=== PATIENT | female | born 1940 | race Caucasian/White ===

== ENCOUNTER 2018-10-10 13:15 | Emergency (ER) | payer OTHER ==
[2018-10-10] MEDS ORDERED: NA CHLORIDE 0.9% 1,000 ML ONE (14:16)
[2018-10-10 14:30] LABS: Absolute Lymphocytes (CBC) 1.7 K/uL (0.7-4.9); Absolute Monocytes 0.7 K/uL (0.1-1.3); Absolute Neutrophil 6.2 K/uL (1.8-8.0); Basophils % 0.7 % (0-1.3); Eosinophils % 1.2 % (0-4.4); Hematocrit 35.9 % (36.0-45.0); Lymphocytes % 19.1 % (15.3-44.8); MPV 9.3 fL (7.6-11.3); Monocytes % 7.7 % (3.3-12.3); RBC Red Blood Cell Count 3.89 M/uL (3.86-4.86)
[2018-10-10] MEDS ORDERED: PROMETHAZINE 25 MG/ML VIAL ONE (14:30)
[2018-10-10 14:33] LABS: Protime INR 1.22
[2018-10-10 14:54] LABS: ALT/SGPT 24 U/L (12-78); AST/SGOT 19 U/L (15-37); Albumin 3.9 g/dL (3.4-5.0); Alkaline Phosphatase 51 U/L (45-117); BUN Blood Urea Nitrogen 19 mg/dL (7-18); Bicarbonate 28 mmol/L (21-32); Bilirubin Direct 0.1 mg/dL (0-0.2); Bilirubin Total 0.3 mg/dL (0.2-1.0); Glucose Level 110 mg/dL (74-106); Magnesium 2.3 mg/dL (1.8-2.4); NT PRO-BNP 221 pg/mL (<450); Potassium 4.1 mmol/L (3.5-5.1); Protein, Total 7.5 g/dL (6.4-8.2); Sodium Level 137 mmol/L (136-145); Troponin (Emerg Dept Use Only) < 0.02 ng/mL (0.0-0.045)
--- NOTE | 2018-10-10 15:33 | RAD REPORT ---
EXAM DESCRIPTION: CT - Head Brain Wo Cont - 10/10/2018 3:18 pm CLINICAL HISTORY: WEAKNESS Headache, hypertension, drowsiness COMPARISON: HEAD BRAIN W O CONTRAST dated 01/02/2009 TECHNIQUE: All CT scans are performed using dose optimization technique as appropriate and may inclu de automated exposure control or mA/KV adjustment according to patient size. FINDINGS: No intracranial hemorrhage, hydrocephalus or extra-axial fluid collection.No areas of brai n edema or evidence of midline shift. The paranasal sinuses and mastoids are clear. The calvarium is intact. IMPRESSION: No acute intracranial abnormality.
--- NOTE | 2018-10-10 15:39 | RAD REPORT ---
EXAM DESCRIPTION: CT - Chest Abdomen Pelvis W Cont - 10/10/2018 3:18 pm CLINICAL HISTORY: Chest and abdomen pain. CHEST PAIN COMPARISON: No comparisons TECHNIQUE: Approximately 100 mL nonionic IV contrast was administered to the patient. All CT scans are performed using dose optimization technique as appropriate and may include automated exposure control or mA/KV adjustment according to patient size. FINDINGS: The lungs are clear.No pleural or pericardial effusion.No intrathoracic adenopathy. The liver, spleen, pancreas, adrenal glands and kidneys are within normal limits. No bowel obstruction, free air, free fluid or abscess. Moderate stool is retained in the colon. The a ppendix is not identified as a discrete structure, however, no secondary findings of appendicitis are identified. No pathologic lymphadenopathy in the abdomen or pelvis. No worrisome osseous finding. IMPRESSION: No acute finding is demonstrated. Moderate retention of stool in the colon.
--- NOTE | 2018-10-10 15:51 | ER ---
Nurse's Notes [facility] Name: Olga Wilson Age: 78 yrs Sex: Female : 1940 Arrival Date: 10/10/2018 Time: 13:18 Bed 24 Private MD: Diagnosis: Syncope and collapse;Chest pain, unspecified Presentation: 10/10 13:18 Presenting complaint: EMS states: called us for weakness, numbness, chest pain. No ca1 cardiac issues in the past. BP is 180-190 systolic, 70-80 diastolic. Complains of Nausea, no vomiting. Transition of care: patient was not received from another setting of care. Onset of symptoms was October 10, 2018. Risk Assessment: Do you want to hurt yourself or someone else? Patient reports no desire to harm self or others. Initial Sepsis Screen: Does the patient meet any 2 criteria? RR > 20 per min. Does the patient have a suspected source of infection? No. Patient's initial sepsis screen is negative. Care prior to arrival: Medication(s) given: Phenergan, 12.5 mg, IV initiated. 18 GA, in the right antecubital area, Glucose check: 96. 13:18 Method Of Arrival: EMS: [facility] ca1 13:18 Acuity: LAUREL 3 ca1 Historical: - PSHx: 13:22 Double Mastectomy; ca1 - Immunization history:: Flu vaccine is up to date. - Social history:: Smoking status: Patient/guardian denies using tobacco. - Ebola Screening: : No symptoms or risks identified at this time. Screenin:30 Abuse screen: Denies threats or abuse. Denies injuries from another. Nutritional ca1 screening: No deficits noted. Tuberculosis screening: No symptoms or risk factors identified. Fall Risk Fall in past 12 months (25 points). IV access (20 points). Assessment: 13:30 General: Appears in no apparent distress. uncomfortable, Behavior is calm, cooperative, ca1 appropriate for age. Pain: Denies pain. Neuro: Level of Consciousness is awake, alert, obeys commands, Oriented to person, place, time, situation, Moves all extremities. Speech is normal, Facial symmetry appears normal, Reports dizziness. Cardiovascular: Heart tones S1 S2 present Capillary refill < 3 seconds Patient's skin is warm and dry. Rhythm is sinus bradycardia. Respiratory: Airway is patent Respiratory effort is even, unlabored, Respiratory pattern is regular, symmetrical, Breath sounds are clear bilaterally. GI: Abdomen is flat, non-distended, Bowel sounds present X 4 quads. Abd is soft and non tender X 4 quads. Reports nausea, vomiting. : No signs and/or symptoms were reported regarding the genitourinary system. EENT: No signs and/or symptoms were reported regarding the EENT system. Derm: Skin is intact, Skin is pink, warm \T\ dry. Musculoskeletal: Circulation, motion, and sensation intact. 14:15 Reassessment: Pt vomited 1x, informed Beverly Zuniga NP. ca1 14:25 Reassessment: Patient appears in no apparent distress at this time. Patient and/or ca1 family updated on plan of care and expected duration. Pain level reassessed. Patient is alert, oriented x 3, equal unlabored respirations, skin warm/dry/pink. 15:04 Reassessment: Pt to CT scan. ca1 15:24 Reassessment: Pt back from CTscan. ca1 15:30 Reassessment: Patient appears in no apparent distress at this time. Patient and/or ca1 family updated on plan of care and expected duration. Pain level reassessed. Patient is alert, oriented x 3, equal unlabored respirations, skin warm/dry/pink. 16:30 Reassessment: Patient appears in no apparent distress at this time. Patient and/or ca1 family updated on plan of care and expected duration. Pain level reassessed. Patient is alert, oriented x 3, equal unlabored respirations, skin warm/dry/pink. awaiting room assignment. 16:30 Reassessment: Informed of admission, does not want to be hospitalized. Reports having ca1 several allergies to food and chemicals. Informed Beverly. 16:35 Reassessment: Beverly Zuniga NP at bedside. ca1 17:30 Reassessment: Patient appears in no apparent distress at this time. Patient and/or ca1 family updated on plan of care and expected duration. Pain level reassessed. Patient is alert, oriented x 3, equal unlabored respirations, skin warm/dry/pink. For repeat TROP at 1800. 18:02 Reassessment: Dr. Metcalf at bedside. ca1 19:05 Reassessment: Patient appears in no apparent distress at this time. Patient is alert, ca1 oriented x 3, equal unlabored respirations, skin warm/dry/pink. Dr. Sal discharged pt at [facility]. Vital Signs: 13:22 BP 157 / 71; Pulse 73; Resp 23; Temp 98.2; Pulse Ox 100% on R/A; Weight 54.43 kg; ca1 Height 5 ft. 3 in. (160.02 cm); 14:15 BP 139 / 54; Pulse 59; Resp 16; Pulse Ox 100% on R/A; ca1 14:45 BP 130 / 57; Pulse 58; Resp 17; Pulse Ox 100% on R/A; ca1 15:30 BP 131 / 61; Pulse 54; Resp 18; Pulse Ox 100% on R/A; ca1 16:15 BP 129 / 58; Pulse 61; Resp 18; Pulse Ox 100% on R/A; ca1 16:45 BP 127 / 57; Pulse 63; Resp 18; Pulse Ox 100% on R/A; ca1 17:30 BP 130 / 58; Pulse 64; Resp 18; Pulse Ox 100% on R/A; ca1 18:15 BP 125 / 61; Pulse 71; Resp 18; Pulse Ox 100% on R/A; ca1 19:05 BP 123 / 63; Pulse 69; Resp 18; Pulse Ox 100% on R/A; ca1 13:22 Body Mass Index 21.26 (54.43 kg, 160.02 cm) ca1 ED Course: 13:18 Patient arrived in ED. ca1 13:22 Triage completed. ca1 13:22 Arm band placed on right wrist. ca1 13:23 Beverly Zuniga FNP-C [facility]. snw 13:23 Jacob Weber MD is Attending Physician. snw 13:30 Patient has correct armband on for positive identification. Placed in gown. Bed in low ca1 position. Call light in reach. Side rails up X 1. clinical research monitor on. Pulse ox on. NIBP on. Warm blanket given. 13:30 EKG done, by networking technician. reviewed by Beverly FLORES. dt2 13:30 Maintain EMS IV. Dressing intact. Good blood return noted. Site clean \T\ dry. Gauge \T\ ca 1 site: G20 at [facility]. 13:50 Rufina Couch RN is Primary Nurse. ca1 14:14 X-ray completed. Portable x-ray completed in exam room. Patient tolerated procedure jb2 well. 14:19 XRAY Chest (1 view) In Process Unspecified. EDMS 14:39 Radiology exam delayed due to lab results not completed at this time. (BUN/Creatinine). vm2 15:18 CT completed. Patient tolerated procedure well. Patient moved back from CT. vm2 15:21 CT Head Brain wo Cont In Process Unspecified. EDMS 15:21 CT Chest, Abdomen, Pelvis - W/Contrast In Process Unspecified. EDMS 15:49 Khai Sal MD is Hospitalizing Provider. snw 18:29 No provider procedures requiring assistance completed. ca1 19:15 IV discontinued, intact, bleeding controlled, No redness/swelling at site. Pressure ca1 dressing applied. Administered Medications: 14:00 Drug: NS 0.9% 1000 ml Route: IV; Rate: 75 ml/hr; Site: right antecubital; ca1 18:40 Follow up: Response: No adverse reaction; IV Status: Order to discontinue infusion ca1 14:20 Drug: Phenergan 6.25 mg Route: IVP; Site: right antecubital; ca1 15:12 Follow up: Response: No adverse reaction; Vomiting decreased ca1 Outcome: 15:50 Decision to Hospitalize by Provider. snw 18:27 Discharged to home per Dr. Frias. See orders and discharge charting at [facility]. ca1 18:27 Condition: stable 18:27 Discharge instructions given to patient, family, Instructed on discharge instructions, follow up and referral plans. medication usage, Demonstrated understanding of instructions, follow-up care, medications, Prescriptions given X 1. 19:24 Patient left the ED. ca1 Signatures: Dispatcher [employer] EDMS Beverly Zuniga FNP-C IDENTIFICATION AND RECORDS COMMANDER-Charlie Owusu jb2 Ankita Billy vm2 May Thornton dt2 Rufina Couch, RN RN ca1 Corrections: (The following items were deleted from the chart) 13:24 13:22 BP 157 / 71; Pulse 73bpm; Resp 23bpm; Pulse Ox 100% RA; 54.43 kg; Height 5 ft. 3 ca1 in.; BMI: 21.2; ca1 10/11 01:05 10/10 18:02 Reassessment: Dr. Frias at bedside. ca1 ca1 10/11 01:08 10/10 18:32 Reassessment: Patient appears in no apparent distress at this time. Patient ca1 is alert, oriented x 3, equal unlabored respirations, skin warm/dry/pink. Dr. Sal discharged pt at [facility]. ca1
--- NOTE | 2018-10-10 15:51 | EDPHYS ---
Physician Documentation [facility] Name: Olga Wilson Age: 78 yrs Sex: Female : 1940 Arrival Date: 10/10/2018 Time: 13:18 Bed 24 Private MD: ED Physician Jacob Weber HPI: 10/10 13:36 This 78 yrs old Female presents to ER via EMS with complaints of chest pain, snw syncope. 13:36 The patient or guardian reports chest pain that is located primarily in the substernal snw area. Onset: 2 week(s) ago, and became worse today, and became persistent. The pain radiates to back. Associated signs and symptoms: Pertinent positives: nausea, syncope. The chest pain is described as a pressure. Duration: The patient or guardian reports a single episode. Severity of pain: At its worst the pain was moderate severe. The patient has not experienced similar symptoms in the past. appt with Dr. Ritchie at 3:00 today, sees Dr. Sal. today pt experienced syncope. 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 - Social history:: Smoking status: Patient/guardian denies using tobacco. - Ebola Screening: : No symptoms or risks identified at this time. ROS: 13:36 Eyes: Negative for injury, pain, redness, and discharge, ENT: Negative for injury, snw pain, and discharge, Neck: Negative for injury, pain, and swelling. 13:36 Back: Negative for injury and pain, : Negative for injury, bleeding, discharge, and swelling, MS/Extremity: Negative for injury and deformity, Skin: Negative for injury, rash, and discoloration. 13:36 Constitutional: Positive for body aches, malaise. 13:36 Cardiovascular: Positive for chest pain. 13:36 Respiratory: Positive for unable to take a deep breath x several weeks. 13:36 Abdomen/GI: Positive for nausea. 13:36 Neuro: Positive for syncope, weakness. 13:36 Psych: Positive for anxiety. Exam: 13:40 Head/Face: Normocephalic, atraumatic. Eyes: Pupils equal round and reactive to light, snw extra-ocular motions intact. Lids and lashes normal. Conjunctiva and sclera are non-icteric and not injected. Cornea within normal limits. Periorbital areas with no swelling, redness, or edema. ENT: Nares patent. No nasal discharge, no septal abnormalities noted. Tympanic membranes are normal and external auditory canals are clear. Oropharynx with no redness, swelling, or masses, exudates, or evidence of obstruction, uvula midline. Mucous membranes moist. Neck: Trachea midline, no thyromegaly or masses palpated, and no cervical lymphadenopathy. Supple, full range of motion without nuchal rigidity, or vertebral point tenderness. No Meningismus. Chest/axilla: Normal chest wall appearance and motion. Nontender with no deformity. No lesions are appreciated. 13:40 Respiratory: Lungs have equal breath sounds bilaterally, clear to auscultation and percussion. No rales, rhonchi or wheezes noted. No increased work of breathing, no retractions or nasal flaring. Abdomen/GI: Soft, non-tender, with normal bowel sounds. No distension or tympany. No guarding or rebound. No evidence of tenderness throughout. Back: No spinal tenderness. No costovertebral tenderness. Full range of motion. 13:40 MS/ Extremity: Pulses equal, no cyanosis. Neurovascular intact. Full, normal range of motion. Neuro: Awake and alert, GCS 15, oriented to person, place, time, and situation. Cranial nerves II-XII grossly intact. Motor strength 5/5 in all extremities. Sensory grossly intact. Cerebellar exam normal. Normal gait. 13:40 Constitutional: The patient appears alert, awake, anxious, frail, uncomfortable. 13:40 Cardiovascular: Rate: bradycardic, Heart sounds: normal, JVD: is noted bilaterally, to 2 cm. 13:40 Skin: Appearance: Moisture: dry. 13:40 Psych: Behavior/mood is anxious, Affect is animated, Oriented to person, place, time. Vital Signs: 13:22 BP 157 / 71; Pulse 73; Resp 23; Temp 98.2; Pulse Ox 100% on R/A; Weight 54.43 kg; ca1 Height 5 ft. 3 in. (160.02 cm); 14:15 BP 139 / 54; Pulse 59; Resp 16; Pulse Ox 100% on R/A; ca1 14:45 BP 130 / 57; Pulse 58; Resp 17; Pulse Ox 100% on R/A; ca1 15:30 BP 131 / 61; Pulse 54; Resp 18; Pulse Ox 100% on R/A; ca1 16:15 BP 129 / 58; Pulse 61; Resp 18; Pulse Ox 100% on R/A; ca1 16:45 BP 127 / 57; Pulse 63; Resp 18; Pulse Ox 100% on R/A; ca1 17:30 BP 130 / 58; Pulse 64; Resp 18; Pulse Ox 100% on R/A; ca1 18:15 BP 125 / 61; Pulse 71; Resp 18; Pulse Ox 100% on R/A; ca1 19:05 BP 123 / 63; Pulse 69; Resp 18; Pulse Ox 100% on R/A; ca1 13:22 Body Mass Index 21.26 (54.43 kg, 160.02 cm) ca1 MDM: 13:23 Patient medically screened. snw 15:50 The patient was not given aspirin in the Emergency Department. Data reviewed: vital snw signs, nurses notes, lab test result(s), radiologic studies. Counseling: I had a detailed discussion with the patient and/or guardian regarding: the historical points, exam findings, and any diagnostic results supporting the discharge/admit diagnosis, lab results, radiology results, the need for further work-up and treatment in the hospital. Physician consultation: Khai Sal MD was called at 15:51, was contacted at 15:51, regarding consult, patient's condition, would like further tests performed, CT for dissection, wants pt admitted for observation. 10/10 13:31 Order name: Basic Metabolic Panel; Complete Time: 14:55 10/10 13:31 Order name: CBC with Diff; Complete Time: 14:35 10/10 13:31 Order name: LFT's; Complete Time: 14:55 10/10 13:31 Order name: Magnesium; Complete Time: 14:55 10/10 13:31 Order name: NT PRO-BNP; Complete Time: 14:55 w 10/10 13:31 Order name: PT-INR; Complete Time: 14:35 10/10 13:25 Order name: CT Head Brain wo Cont; Complete Time: 15:43 snw 10/10 13:31 Order name: Troponin (emerg Dept Use Only); Complete Time: 14:55 w 10/10 13:31 Order name: XRAY Chest (1 view) snw 10/10 13:31 Order name: CT Chest, Abdomen, Pelvis - W/Contrast; Complete Time: 16:06 snw 10/10 14:19 Order name: Glucose, Ancillary Testing; Complete Time: 14:22 EDMS 10/10 17:30 Order name: Troponin (emerg Dept Use Only): draw at 1800 per lab w 10/10 18:28 Order name: Troponin (Emerg Dept Use Only); Complete Time: 14:13 EDMS 10/10 13:31 Order name: EKG; Complete Time: 13:32 snw 10/10 13:31 Order name: Cardiac monitoring; Complete Time: 14:39 snw 10/10 13:31 Order name: EKG - Nurse/Tech; Complete Time: 14:39 snw 10/10 13:31 Order name: IV Saline Lock; Complete Time: 14:39 snw 10/10 13:31 Order name: Labs collected and sent; Complete Time: 14:39 snw 10/10 13:31 Order name: O2 Per Protocol; Complete Time: 14:39 snw 10/10 13:31 Order name: O2 Sat Monitoring; Complete Time: 14:39 snw 10/10 13:31 Order name: FSBS; Complete Time: 14:40 snw 10/10 17:30 Order name: EKG: at 1800; Complete Time: 17:31 snw Administered Medications: 14:00 Drug: NS 0.9% 1000 ml Route: IV; Rate: 75 ml/hr; Site: right antecubital; ca1 18:40 Follow up: Response: No adverse reaction; IV Status: Order to discontinue infusion ca1 14:20 Drug: Phenergan 6.25 mg Route: IVP; Site: right antecubital; ca1 15:12 Follow up: Response: No adverse reaction; Vomiting decreased ca1 Disposition: 18:52 Co-signature as Attending Physician, Jacob Weber MD. rn Disposition: 10/10/18 15:50 Hospitalization ordered by Khai Sal for Observation. Preliminary diagnosis are Syncope and collapse, Chest pain, unspecified. - Bed requested for Telemetry/MedSurg (observation). - Status is Observation. ca1 - Condition is Stable. - Problem is an acute exacerbation. - Symptoms are unchanged. UTI on Admission? No Signatures: Dispatcher [employer] EDGA Beverly Zuniga PASSENGER REPRESENTATIVE-C PASSENGER REPRESENTATIVE-Csnw Jacob Weber MD MD rn Smirch, Shelby, RN RN ss Rufina Couch RN RN ca1 Corrections: (The following items were deleted from the chart) 16:00 15:50 Angio Aorta For Dissection+CT.RAD.BRZ ordered. EDGA EDMS 18:10 15:50 Hospitalization Ordered by Khai Sal MD for Observation. Preliminary diagnosis ss is Syncope and collapse; Chest pain, unspecified. Bed requested for Telemetry/MedSurg (observation). Status is Observation. Condition is Stable. Problem is an acute exacerbation. Symptoms are unchanged. UTI on Admission? No. snw 19:24 18:10 10/10/2018 15:50 Hospitalization Ordered by Khai Sal MD for Observation. ca1 Preliminary diagnosis is Syncope and collapse; Chest pain, unspecified. Bed requested for Telemetry/MedSurg (observation). Status is Observation. Condition is Stable. Problem is an acute exacerbation. Symptoms are unchanged. UTI on Admission? No. ss
--- NOTE | 2018-10-10 16:45 | EKG ---
Test Date: 2018-10-10 Test Time: 13:26:15 Periodicals Clerk: MANINDER MEASUREMENT RESULTS: Intervals: Rate: 57 WA: 164 QRSD: 84 QT: 412 QTc: 401 Lovejoy: P: 77 WA: 164 QRS: 71 T: 67 INTERPRETIVE STATEMENTS: Sinus bradycardia Otherwise normal ECG Compared to ECG 07/01/2016 10:07:07 Sinus rhythm no longer present Electronically Signed On 10-10-18 16:44:02 WATER PURIFIER by Patel Atkinson
--- NOTE | 2018-10-10 20:42 | P.SSS ---
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 SHE PANICKED THINKING SHE HAS CANCER COMING BACK AND ALMOST PASSED OUT. SHE HAS PASSED OUT WITH ANXIETY BEFORE. SHE ALSO WEARS A UNDERWIREED BRA AND SINCE SHE REMOVED IT THE PAIN IS ALMOST GONE NOW. COMING TO ER SHE HAD USUAL ER WORK UP WITH MANY CT SCANS AND NOTHING SHOWED UP. SHE IS MUCH RELIEVED. SHE WANTS TO GO HOME AND SHE NEEDS TO GO HOME ANYWAY NONE OF THE SYMPTOMS WARRANTED EXTENSIVE WORK UP. Allergies ciprofloxacin Allergy (Severe, Verified 06/07/17 09:23) Anaphylaxis metronidazole [From Flagyl] Allergy (Severe, Verified 06/07/17 09:23) Anaphylaxis pentazocine [From Talwin] Adverse Reaction (Severe, Verified 06/07/17 09:23) Nausea/Vomiting propoxyphene [From Darvon] Adverse Reaction (Severe, Verified 06/07/17 09:23) Nausea/Vomiting codeine Adverse Reaction (Intermediate, Verified 06/07/17 09:23) Nausea/Vomiting hydrocodone [From Lortab] Adverse Reaction (Intermediate, Verified 06/07/17 09: 23) Nausea/Vomiting acetaminophen [From Lortab] Adverse Reaction (Mild, Verified 06/07/17 09:23) Nausea/Vomiting aspirin Adverse Reaction (Mild, Verified 06/07/17 09:23) Nausea/Vomiting ibuprofen Adverse Reaction (Mild, Verified 06/07/17 09:23) Nausea/Vomiting Home Medications: Fluticasone Propionate [Flonase Allergy Relief] 9.9 ml NS DAILYPRN PRN 07/01/16 Gabapentin [Neurontin*] 300 mg PO BEDTIME PRN PRN 07/01/16 Levothyroxine Sodium [Levoxyl] 0.075 mg PO DAILY 07/01/16 Montelukast [Singulair*] 10 mg PO DAILY 07/01/16 Xgeva 1 dose IM ONCE 07/01/16 Zolpidem Tartrate [Ambien*] 5 mg PO BEDTIME PRN 07/01/16 Tramadol HCl/Acetaminophen [Ultracet Tablet] 1 each PO Q6H PRN #20 tablet Yuliet Root 550 mg PO DAILY 05/12/17 Turmeric Root Extract [Turmeric] 2 tab PO DAILY 05/12/17 Escitalopram [Lexapro] 10 mg PO DAILY #30 tab 10/10/18 Review of Systems 10-point ROS is otherwise unremarkable Neurological: As per HPI Physical Examination - Vital Signs Temperature: 98.2 F Blood Pressure: 125/61 Pulse: 71 Respirations: 18 - Physical Exam General: Alert, In no apparent distress HEENT: Atraumatic, PERRLA, Mucous membr. moist/pink, EOMI, Sclerae nonicteric Neck: Supple, 2+ carotid pulse no bruit, No LAD, Without JVD or thyroid abnormality Respiratory: Clear to auscultation bilaterally, Normal air movement Cardiovascular: Regular rate/rhythm, Normal S1 S2 Gastrointestinal: Normal bowel sounds, No tenderness Musculoskeletal: No tenderness Integumentary: No rashes Neurological: Normal gait, Normal speech, Normal strength at 5/5 x4 extr, Normal tone, Normal affect Lymphatics: No axilla or inguinal lymphadenopathy - Studies Laboratory Data (last 24 hrs) 10/10/18 14:20: PT 14.3 H, INR 1.22 10/10/18 14:20: WBC 8.7, Hgb 12.0, Hct 35.9 L, Plt Count 309 10/10/18 14:20: Sodium 137, Potassium 4.1, BUN 19 H, Creatinine 0.85, Glucose 110 H, Magnesium 2.3, Total Bilirubin 0.3, AST 19, ALT 24, Alkaline Phosphatase 51 - Diagnosis (Problem(s)) (1) Costochondral chest pain Status: Acute Plan: SHE WILL NOT DO MUCH PHYSICAL WORK ANY LONGER. SHE WILL HIRE SOMEONE. THERE IS NO PAIN ANY LONGER. (2) Panic attack Status: Acute Plan: I ADDED LEXAPRO DAILY. WILL FU IN ONE WEEK. - Disposition Disposition: ROUTINE DISCHARGE Condition: FAIR
== END 2018-10-10 19:25 | disposition home or self-care (01) ==
LOC: ER 13:15 → ERHOLD 15:58 → UNDOADMOB 15:58 → UNDODISOB 19:25 → ER 19:25
DX: R07.9 Chest pain, unspecified (principal); F41.0 Panic disorder [episodic paroxysmal anxiety]; Z88.5 Allergy status to narcotic agent; Z88.6 Allergy status to analgesic agent; Z88.8 Allergy status to other drugs, medicaments and biological substances; Z90.13 Acquired absence of bilateral breasts and nipples
CPT/HCPCS: 36415; 70450; 71045; 71260; 74177; 80048; 80076; 82962; 83735; 83880; 84484 ×2; 85025; 85610; 93005; 96361; 96374; 99285; G0378 ×2; J2550; J7030; Q9967